=== PATIENT | female | born 1975 | race Caucasian/White ===

== ENCOUNTER 2021-10-28 10:02 | Inpatient (IN) | payer BC ==
--- NOTE | 2021-10-28 10:22 | ED ---
Abdominal Pain HPI - General Chief Complaint: Abdominal Pain Stated Complaint: Abd pain Time Seen by Provider: 10/28/21 10:07 Source: patient Mode of arrival: ambulatory Limitations: no limitations - History of Present Illness Initial Comments: Patient is a 46-year-old female presents to the emergency department with a chief complaint of abdominal pain. Patient was sent here from urgent care for labs and CT. Patient reports she coughed 2 days ago and experienced lower bandlike abdominal pain. There is radiation to the bilateral flanks. Patient reports that the intermittent pain has continued to worsen. She has associated fevers/chills. She denies other complaints at this time including upper respiratory symptoms, chest pain, nausea, vomiting, diarrhea, urination, increased urinary frequency/urgency, and blood in the urine. She denies pre vious abdominal surgery, chance of , and history of kidney infection or stone. - Related Data Home Medications Medication Instructions Recorded Confirmed Thyroid,Pork [[place] Thyroid] 90 mg PO HS 10/28/21 10/28/21 Allergies Allergy/AdvReac Type Severity Reaction Status Date / Time No Known Allergies Allergy Verified 10/28/21 11:00 Review of Systems ROS Statement: Those systems with pertinent positive or pertinent negative responses have been documented in the HPI. ROS Other: All systems not noted in ROS Statement are negative. Past Medical History Past Medical History: No Reported History History of Any Multi-Drug Resistant Organisms: None Reported Past Surgical History: No Surgical Hx Reported Past Psychological History: No Psychological Hx Reported Smoking Status: Never smoker Past Alcohol Use History: None Reported Past Drug Use History: None Reported General Exam Limitations: no limitations General appearance: alert, in no apparent distress Head exam: Present: atraumatic, normocephalic, normal inspection Eye exam: Present: normal appearance, PERRL, EOMI. Absent: scleral icterus, conjunctival injection, periorbital swelling Neck exam: Present: normal inspection Respiratory exam: Present: normal lung sounds bilaterally. Absent: respiratory distress, wheezes, rales, rhonchi, stridor Cardiovascular Exam: Present: regular rate, normal rhythm, normal heart sounds. Absent: systolic murmur, diastolic murmur, rubs, gallop, clicks GI/Abdominal exam: Present: soft, normal bowel sounds. Absent: distended, tenderness, guarding, rebound, rigid Back exam: Present: normal inspection. Absent: CVA tenderness (R), CVA tenderness (L) Neurological exam: Present: alert, oriented X3, CN II-XII intact Psychiatric exam: Present: normal affect, normal mood Skin exam: Present: warm, dry, intact, normal color. Absent: rash Course Vital Signs 10/28/21 10:04 Temperature 99.0 F Pulse Rate 86 Respiratory 18 Rate Blood Pressure 114/73 O2 Sat by Pulse 98 Oximetry Medical Decision Making - Medical Decision Making This is a 46-year-old female who presents to the emergency department with a chief complaint of lower abdominal pain. Thorough history and examination were performed. Patient is afebrile. CT of the abdomen and pelvis without contrast reveals severe acute diverticulitis involving the proximal portion of the sigmoid colon with suspected adhesions to the surrounding pelvic structures. No signs of perforation, definite abscess formation, or colonic obstruction possible progression to complication. Case discussed with Dr. Vazquez. Patient will be admitted to Dr. Vazquez with surgery consult for further evaluation and management of diverticulitis. Lactic, blood cultures, and Zosyn ordered. Results discussed with patient. Patient verbalizes understanding and is agreeable to plan. Dr. Ro is my attending. - Lab Data Result diagrams: 10/28/21 10:30 10/28/21 10:30 Lab Results 10/28/21 10/28/21 10/28/21 Range/Units 10:30 10:30 10:30 WBC 11.3 H (3.8-10.6) k/uL RBC 4.32 (3.80-5.40) m/uL Hgb 12.6 (11.4-16.0) gm/dL Hct 36.8 (34.0-46.0) % MCV 85.1 (80.0-100.0) fL MCH 29.2 (25.0-35.0) pg MCHC 34.3 (31.0-37.0) g/dL RDW 15.7 H (11.5-15.5) % Plt Count 292 (150-450) k/uL MPV 7.5 Neutrophils % 84 % Lymphocytes % 10 % Monocytes % 4 % Eosinophils % 0 % Basophils % 0 % Neutrophils # 9.5 H (1.3-7.7) k/uL Lymphocytes # 1.1 (1.0-4.8) k/uL Monocytes # 0.4 (0-1.0) k/uL Eosinophils # 0.1 (0-0.7) k/uL Basophils # 0.0 (0-0.2) k/uL Poikilocytosis Slight Sodium 135 L (137-145) mmol/L Potassium 3.6 (3.5-5.1) mmol/L Chloride 101 (98-107) mmol/L Carbon Dioxide 24 (22-30) mmol/L Anion Gap 10 mmol/L BUN 8 (7-17) mg/dL Creatinine 0.73 (0.52-1.04) mg/dL Est GFR (CKD-EPI)AfAm >90 (>60 ml/min/1.73 sqM) Est GFR (CKD-EPI)NonAf >90 (>60 ml/min/1.73 sqM) Glucose 137 H (74-99) mg/dL Calcium 9.1 (8.4-10.2) mg/dL Total Bilirubin 2.4 H (0.2-1.3) mg/dL AST 28 (14-36) U/L ALT 24 (4-34) U/L Alkaline Phosphatase 70 (38-126) U/L Total Protein 8.1 (6.3-8.2) g/dL Albumin 4.6 (3.5-5.0) g/dL Lipase 48 (23-300) U/L Urine Color Light Yellow Urine Appearance Cloudy H (Clear) Urine pH 6.0 (5.0-8.0) Ur Specific [place] 1.004 (1.001-1.035) Urine Protein Negative (Negative) Urine Glucose (UA) Negative (Negative) Urine Ketones Negative (Negative) Urine Blood Trace H (Negative) Urine Nitrite Negative (Negative) Urine Bilirubin Negative (Negative) Urine Urobilinogen <2.0 (<2.0) mg/dL Ur Leukocyte Esterase Trace H (Negative) Urine WBC <1 (0-5) /hpf Urine Bacteria Rare H (None) /hpf Urine HCG, Qual (Not Detectd) 10/28/21 Range/Units 10:30 WBC (3.8-10.6) k/uL RBC (3.80-5.40) m/uL Hgb (11.4-16.0) gm/dL Hct (34.0-46.0) % MCV (80.0-100.0) fL MCH (25.0-35.0) pg MCHC (31.0-37.0) g/dL RDW (11.5-15.5) % Plt Count (150-450) k/uL MPV Neutrophils % % Lymphocytes % % Monocytes % % Eosinophils % % Basophils % % Neutrophils # (1.3-7.7) k/uL Lymphocytes # (1.0-4.8) k/uL Monocytes # (0-1.0) k/uL Eosinophils # (0-0.7) k/uL Basophils # (0-0.2) k/uL Poikilocytosis Sodium (137-145) mmol/L Potassium (3.5-5.1) mmol/L Chloride (98-107) mmol/L Carbon Dioxide (22-30) mmol/L Anion Gap mmol/L BUN (7-17) mg/dL Creatinine (0.52-1.04) mg/dL Est GFR (CKD-EPI)AfAm (>60 ml/min/1.73 sqM) Est GFR (CKD-EPI)NonAf (>60 ml/min/1.73 sqM) Glucose (74-99) mg/dL Calcium (8.4-10.2) mg/dL Total Bilirubin (0.2-1.3) mg/dL AST (14-36) U/L ALT (4-34) U/L Alkaline Phosphatase (38-126) U/L Total Protein (6.3-8.2) g/dL Albumin (3.5-5.0) g/dL Lipase (23-300) U/L Urine Color Urine Appearance (Clear) Urine pH (5.0-8.0) Ur Specific [place] (1.001-1.035) Urine Protein (Negative) Urine Glucose (UA) (Negative) Urine Ketones (Negative) Urine Blood (Negative) Urine Nitrite (Negative) Urine Bilirubin (Negative) Urine Urobilinogen (<2.0) mg/dL Ur Leukocyte Esterase (Negative) Urine WBC (0-5) /hpf Urine Bacteria (None) /hpf Urine HCG, Qual Not Detected (Not Detectd) Disposition Clinical Impression: Abdominal pain, Diverticulitis Disposition: ADMITTED IP TO THIS [facility] Condition: Good Referrals: Nonstaff,Physician [Primary Care Provider] - 1-2 days Decision Time: 11:20
[2021-10-28 10:39] LABS: Basophils % (A) 0 %; Eosinophils # (A) 0.1 k/uL (0-0.7); Eosinophils % (A) 0 %; HCT 36.8 % (34.0-46.0); HGB 12.6 gm/dL (11.4-16.0); Lymphocytes # (A) 1.1 k/uL (1.0-4.8); Lymphocytes % (A) 10 %; MCH 29.2 pg (25.0-35.0); MCHC 34.3 g/dL (31.0-37.0); MCV 85.1 fL (80.0-100.0); Mean Platelet Volume 7.5; Monocytes # (A) 0.4 k/uL (0-1.0); Monocytes % (A) 4 %; Neutrophils # (A) 9.5 k/uL (1.3-7.7); Neutrophils % (A) 84 %; Platelet Count 292 k/uL (150-450); Poikilocytosis Slight; RBC 4.32 m/uL (3.80-5.40); RDW 15.7 % (11.5-15.5); WBC 11.3 k/uL (3.8-10.6)
[2021-10-28] MEDS ORDERED: SODIUM CHLORIDE 0.9% 1,000 ML IV STA (11:00)
[2021-10-28 11:01] LABS: Appearance,Urine Cloudy (Clear); Bacteria,Urine Rare /hpf; Bilirubin,Urine Negative (Negative); Blood,Urine Trace (Negative); Color,Urine Light Yellow; Glucose,Urine (UA) Negative (Negative); Ketones,Urine Negative (Negative); Leukocyte Esterase,Urine Trace (Negative); Nitrite,Urine Negative (Negative); Protein,Urine Negative (Negative); Specific Gravity,Urine 1.004 (1.001-1.035); Urobilinogen,Urine <2.0 mg/dL (<2.0); WBC,Urine <1 /hpf (0-5)
[2021-10-28 11:08] LABS: ALT 24 U/L (4-34); AST 28 U/L (14-36); African American GFR (CKD) >90 (>60 ml/min/1.73 sqM); Albumin 4.6 g/dL (3.5-5.0); Alkaline Phosphatase 70 U/L (38-126); Anion Gap 10 mmol/L; Blood Urea Nitrogen 8 mg/dL (7-17); Calcium 9.1 mg/dL (8.4-10.2); Carbon Dioxide 24 mmol/L (22-30); Chloride 101 mmol/L (98-107); Glucose 137 mg/dL (74-99); Lipase 48 U/L (23-300); Non-African American GFR(CKD) >90 (>60 ml/min/1.73 sqM); Potassium 3.6 mmol/L (3.5-5.1); Sodium 135 mmol/L (137-145); Total Bilirubin 2.4 mg/dL (0.2-1.3); Total Protein 8.1 g/dL (6.3-8.2)
--- NOTE | 2021-10-28 11:11 | CT ---
EXAMINATION TYPE: CT abdomen pelvis wo con DATE OF EXAM: 10/28/2021 COMPARISON: None available HISTORY: Pelvic pain. CT DLP: 719.7 mGycm Automated exposure control for dose reduction was used. TECHNIQUE: Helical acquisition of images was performed from the lung bases through the pelvis. No IV contrast administration. FINDINGS: LUNG BASES: No significant abnormality is appreciated. LIVER/GB: Questionable mild hepatic steatosis. No definite hepatic focal lesion by this nonenhanced C T scan. No radiodense gallbladder calculi. No signs of acute cholecystitis. PANCREAS: No significant abnormality is seen. SPLEEN: No significant abnormality is seen. ADRENALS: No significant abnormality is seen. KIDNEYS: No significant abnormality is seen. FREE AIR: No free air is visualized RETROPERITONEAL ADENOPATHY: No pathologically enlarged REPRODUCTIVE ORGANS: Suboptimally assessed suspected adhesion between the left side of the uterus and left adnexa as well as the inflamed sigmoid colon. URINARY BLADDER: Grossly unremarkable. PELVIC ADENOPATHY: No pathologically enlarged. OSSEOUS STRUCTURES: Osteophytosis of the left sacroiliac joint. Mild degenerative changes of the lum bar spine. BOWEL: Severe acute diverticulitis involving the proximal portion of the sigmoid colon with thickene d colonic wall, surrounding fat stranding, reactive fluid and peritoneal reflection thickening. No de finite abscess formation or signs of perforation by this nonenhanced CT scan. Suspected adhesions bet ween the inflamed sigmoid colon, the adjacent portion of the uterus, urinary bladder and left adnexa. This could progressed to fistula. The inflammatory changes are seen extending superiorly along the l eft side of the abdomen with fecalization of adjacent small bowel loop. Otherwise unremarkable nondis tended stomach, duodenum and small bowel. OTHER: No sizable ascites. Small fat-containing umbilical hernia IMPRESSION: Severe acute diverticulitis involving the proximal portion of the sigmoid colon with suspected adhesi ons to the surrounding pelvic structures as detailed above. No signs of perforation, definite abscess formation or colonic obstruction by this nonenhanced CT scan. This could progress to complication. O ther incidental findings as described above.
[2021-10-28] MEDS ORDERED: NALOXONE 0.4 MG/ML 1 ML VIAL IV PRN (12:15)
--- NOTE | 2021-10-28 12:16 | P.PN ---
Progress Note - Text Progress Note Date: 10/28/21 Spoke with ER regarding this patient with severe diverticulitis and adhesions, as well as elevated white count. Pts hospital stay likely > 2 midnights, therefore I called Dr. Vazquez, who will be admitting this patient as an inpatient admission under their service, and assuming care of patient at this time.
[2021-10-28] MEDS ORDERED: PIPERACILLIN-TAZOBACTAM 3.375 GM in SODIUM CHLORIDE 0.9% 100 ML IVPB STA (12:19)
--- NOTE | 2021-10-28 13:46 | P.HPIM ---
History of Present Illness Patient is a pleasant 46-year-old female came in with comments of abdominal pain in the left lower quadrant, moderate severity presently 3/10, intermittent denied nausea vomiting denied any fever chills. Patient has CT of the abdomen showed severe is acute diverticulitis with the suspected adhesions. No signs of perforation. Patient's symptoms started 2 days ago. Patient does have leukocytosis REVIEW OF SYSTEMS: CONSTITUTIONAL: No fever, no malaise, no fatigue. HEENT: No recent visual problems or hearing problems. Denied any sore throat. CARDIOVASCULAR: No chest pain, orthopnea, PND, no palpitations, no syncope. PULMONARY: No shortness of breath, no cough, no hemoptysis. GASTROINTESTINAL: As mentioned in HPI NEUROLOGICAL: No headaches, no weakness, no numbness. HEMATOLOGICAL: Denies any bleeding or petechiae. GENITOURINARY: Denies any burning micturition, frequency, or urgency. MUSCULOSKELETAL/RHEUMATOLOGICAL: Denies any joint pain, swelling, or any muscle pain. ENDOCRINE: Denies any polyuria or polydipsia. The rest of the 14-point review of systems is negative. PHYSICAL EXAMINATION: GENERAL: The patient is alert and oriented x3, not in any acute distress. Well developed, well nourished. HEENT: Pupils are round and equally reacting to light. EOMI. No scleral icterus. No conjunctival pallor. Normocephalic, atraumatic. No pharyngeal erythema. No thyromegaly. CARDIOVASCULAR: S1 and S2 present. No murmurs, rubs, or gallops. PULMONARY: Chest is clear to auscultation, no wheezing or crackles. ABDOMEN: Soft, mild tenderness and bilateral lower abdominal quadrants nondistended, normoactive bowel sounds. No palpable organomegaly. MUSCULOSKELETAL: No joint swelling or deformity. EXTREMITIES: No cyanosis, clubbing, or pedal edema. NEUROLOGICAL: Gross neurological examination did not reveal any focal deficits. SKIN: No rashes. Assessment and plan -Acute diverticulitis: Patient will be started on Rocephin and metronidazole. Patient was started on clear liquid diet and IV fluids -Hypothyroidism: Patient is not on any levothyroxine at this time we'll obtain TSH tomorrow DVT prophylaxis: Lovenox Past Medical History Past Medical History: Skin Disorder, Thyroid Disorder Additional Past Medical History / Comment(s): Recently failed stress test/to follow up in november 2021, hypothyroid, hemorrhoids, psoriasis, gestational diabetes. History of Any Multi-Drug Resistant Organisms: None Reported Past Surgical History: No Surgical Hx Reported Additional Past Surgical History / Comment(s): Incomplete colonoscopy/scoped descending colon Past Anesthesia/Blood Transfusion Reactions: No Reported Reaction Smoking Status: Never smoker - Past Family History Mother Additional Family Medical History / Comment(s): Mother has diverticulitis Father Family Medical History: Myocardial Infarction ([place]) Additional Family Medical History / Comment(s): Father had a MA at the age of 66 or 67yrs. Medications and Allergies Home Medications Medication Instructions Recorded Confirmed Type Thyroid,Pork [[place] Thyroid] 90 mg PO HS 10/28/21 10/28/21 History Allergies Allergy/AdvReac Type Severity Reaction Status Date / Time No Known Allergies Allergy Verified 10/28/21 11:00 Physical Exam Vitals: Vital Signs Temp Pulse Resp BP Pulse Ox 10/28/21 10:04 99.0 F 86 18 114/73 98 Intake and Output 10/27/21 10/28/21 10/28/21 22:59 06:59 14:59 Other: Weight 88.451 kg Results CBC & Chem 7: 10/28/21 10:30 10/28/21 10:30 Labs: Abnormal Lab Results - Last 24 Hours (Table) 10/28/21 10/28/21 10/28/21 Range/Units 10:30 10:30 10:30 WBC 11.3 H (3.8-10.6) k/uL RDW 15.7 H (11.5-15.5) % Neutrophils # 9.5 H (1.3-7.7) k/uL Sodium 135 L (137-145) mmol/L Glucose 137 H (74-99) mg/dL Total Bilirubin 2.4 H (0.2-1.3) mg/dL Urine Appearance Cloudy H (Clear) Urine Blood Trace H (Negative) Ur Leukocyte Esterase Trace H (Negative) Urine Bacteria Rare H (None) /hpf Thrombosis Risk Factor Assmnt - Choose All That Apply Any of the Below Risk Factors Present?: Yes Each Factor Represents 1 point: Age 41-60 years, Obesity (BMI >25) Other Risk Factors: No Other congenital or acquired thrombophilia - If yes, enter type in comment: No Thrombosis Risk Factor Assessment Total Risk Factor Score: 2 Thrombosis Risk Factor Assessment Level: Low Risk
[2021-10-28] MEDS ORDERED: KETOROLAC 30 MG/ML 1 ML VIAL IVP PRN (13:47)
[2021-10-28] MEDS ORDERED: HYDROcodone/APAP 7.5-325MG 1 EACH TAB PO PRN (13:49)
[2021-10-28] MEDS: ACETAMINOPHEN TAB 325 MG TAB PO PRN ×2 (14:41→21:41)
[2021-10-28] MEDS: FAMOTIDINE 20 MG TAB PO SCH ×2 (14:41→19:40)
[2021-10-28] MEDS: metroNIDAZOLE-NS PMX 500 MG in SALINE 1 100ML.BAG IVPB SCH ×2 (17:29→19:40)
[2021-10-28] MEDS: SODIUM CHLORIDE 0.9% 1,000 ML IV SCH (19:40)
[2021-10-29 02:05] VITALS: RESP 15; TEMP 97.6
[2021-10-29] MEDS: SODIUM CHLORIDE 0.9% 1,000 ML IV SCH ×2 (06:06→12:51)
[2021-10-29 08:18] LABS: Basophils % (A) 0 %; Eosinophils # (A) 0.1 k/uL (0-0.7); Eosinophils % (A) 1 %; HCT 33.7 % (34.0-46.0); HGB 11.2 gm/dL (11.4-16.0); Lymphocytes # (A) 1.2 k/uL (1.0-4.8); Lymphocytes % (A) 13 %; MCH 29.3 pg (25.0-35.0); MCHC 33.2 g/dL (31.0-37.0); MCV 88.2 fL (80.0-100.0); Mean Platelet Volume 7.9; Monocytes # (A) 0.3 k/uL (0-1.0); Monocytes % (A) 3 %; Neutrophils # (A) 7.5 k/uL (1.3-7.7); Neutrophils % (A) 81 %; Platelet Count 243 k/uL (150-450); RBC 3.82 m/uL (3.80-5.40); RDW 15.2 % (11.5-15.5); WBC 9.2 k/uL (3.8-10.6)
[2021-10-29 08:27] VITALS: BP 109/72; PULSE 80
[2021-10-29] MEDS: metroNIDAZOLE-NS PMX 500 MG in SALINE 1 100ML.BAG IVPB SCH (08:40)
[2021-10-29] MEDS: FAMOTIDINE 20 MG TAB PO SCH (08:40)
[2021-10-29] MEDS: ACETAMINOPHEN TAB 325 MG TAB PO PRN (08:43)
[2021-10-29] MEDS ORDERED: ENOXAPARIN 40 MG/0.4 ML SYRINGE SQ SCH (09:00)
[2021-10-29 09:27] LABS: African American GFR (CKD) >90 (>60 ml/min/1.73 sqM); Anion Gap 7 mmol/L; Blood Urea Nitrogen 5 mg/dL (7-17); Calcium 8.5 mg/dL (8.4-10.2); Carbon Dioxide 24 mmol/L (22-30); Chloride 106 mmol/L (98-107); Glucose 178 mg/dL (74-99); Non-African American GFR(CKD) >90 (>60 ml/min/1.73 sqM); Potassium 3.8 mmol/L (3.5-5.1); Sodium 137 mmol/L (137-145)
[2021-10-29 10:39] LABS: T4, Free (Free Thyroxine) 0.72 ng/dL (0.78-2.19)
[2021-10-29 10:46] VITALS: BMI 29.6
--- NOTE | 2021-10-29 11:15 | P.GSCN ---
History of Present Illness Consult date: 10/29/21 History of present illness: CHIEF COMPLAINT: Abdominal pain HISTORY OF PRESENT ILLNESS: This is a 46-year-old female presented to the hospital with complaints of abdominal pain in the left lower quadrant that started 2 days ago. Patient has had no prior history of diverticulitis. She denies any prior colonoscopy. Computed tomography scan has shown evidence of severe acute diverticulitis involving the sigmoid colon. Patient started on IV antibiotics. She reports that her pain is better today than compared to yesterday. Her white count has normalized. She denies any fever or chills or sweats. Patient seen and examined with Dr. murphy PAST MEDICAL HISTORY: Hypothyroidism, hemorrhoids PAST SURGICAL HISTORY: No surgical history MEDICATIONS: See list. ALLERGIES: See list. SOCIAL HISTORY: No illicit drug use. REVIEW OF SYSTEMS: CONSTITUTIONAL: Denies fever or chills. HEENT: Denies blurred vision, vision changes, or eye pain. Denies hemoptysis CARDIOVASCULAR: Denies chest pain or pressure. RESPIRATORY: No shortness of breath. GASTROINTESTINAL: See HPI for pertinent findings HEMATOLOGIC: Denies bleeding disorders. GENITOURINARY: Denies any blood in urine or increased urinary frequency. SKIN: Denies pruitis. Denies rash. PHYSICAL EXAM: VITAL SIGNS: Reviewed GENERAL: Well-developed in no acute distress. HEENT: No sclera icterus. Extraocular movements grossly intact. Moist buccal mucosa. Head is atraumatic, normocephalic. No nasal drainage. ABDOMEN: Soft. Nondistended. Tenderness to palpation of the left lower quadrant NEUROLOGIC: Alert and oriented. Cranial nerves II through XII grossly intact. LABORATORY DATA: WBC 11.3 down to 9.2 hemoglobin 11.2 platelets 243 Sodium 137 potassium 3.8 creatinine 0.64 IMAGING: Computed tomography scan abdomen and pelvis severe acute diverticulitis involving the proximal portion of the sigmoid colon with suspected adhesions to the surrounding pelvic structures. No signs of perforation, abscess formation or colonic obstruction. ASSESSMENT: 1. Acute sigmoid diverticulitis 2. Suspected adhesions surrounding the pelvic structures noted on computed tomography scan PLAN: -Continue conservative management -Continue antibiotics -Advance diet to full liquids -Continue to monitor -Continue pain medication as needed Thank you for this consultation Physician Manager Planning note has been reviewed by physician. Signing provider agrees with the documented findings, assessment, and plan of care. Past Medical History Past Medical History: Skin Disorder, Thyroid Disorder Additional Past Medical History / Comment(s): Recently failed stress test/to follow up in november 2021, hypothyroid, hemorrhoids, psoriasis, gestational diabetes. History of Any Multi-Drug Resistant Organisms: None Reported Past Surgical History: No Surgical Hx Reported Additional Past Surgical History / Comment(s): Incomplete colonoscopy/scoped descending colon Past Anesthesia/Blood Transfusion Reactions: No Reported Reaction Smoking Status: Never smoker - Past Family History Mother Additional Family Medical History / Comment(s): Mother has diverticulitis Father Family Medical History: Myocardial Infarction ([place]) Additional Family Medical History / Comment(s): Father had a [place] at the age of 66 or 67yrs. Medications and Allergies Home Medications Medication Instructions Recorded Confirmed Type Thyroid,Pork [[place] Thyroid] 90 mg PO HS 10/28/21 10/28/21 History Allergies Allergy/AdvReac Type Severity Reaction Status Date / Time No Known Allergies Allergy Verified 10/28/21 11:00 Surgical - Exam Vital Signs Temp Pulse Resp BP Pulse Ox 99.0 F 86 18 114/73 98 10/28/21 10:04 10/28/21 10:04 10/28/21 10:04 10/28/21 10:04 10/28/21 10:04 Results - Labs 10/29/21 07:58 10/29/21 07:58 Abnormal Lab Results - Last 24 Hours (Table) 10/28/21 10/28/21 10/28/21 Range/Units 10:30 10:30 10:30 WBC 11.3 H (3.8-10.6) k/uL Hgb (11.4-16.0) gm/dL Hct (34.0-46.0) % RDW 15.7 H (11.5-15.5) % Neutrophils # 9.5 H (1.3-7.7) k/uL Sodium 135 L (137-145) mmol/L BUN (7-17) mg/dL Glucose 137 H (74-99) mg/dL Total Bilirubin 2.4 H (0.2-1.3) mg/dL Urine Appearance Cloudy H (Clear) Urine Blood Trace H (Negative) Ur Leukocyte Esterase Trace H (Negative) Urine Bacteria Rare H (None) /hpf 10/29/21 10/29/21 Range/Units 07:58 07:58 WBC (3.8-10.6) k/uL Hgb 11.2 L (11.4-16.0) gm/dL Hct 33.7 L (34.0-46.0) % RDW (11.5-15.5) % Neutrophils # (1.3-7.7) k/uL Sodium (137-145) mmol/L BUN 5 L (7-17) mg/dL Glucose 178 H (74-99) mg/dL Total Bilirubin (0.2-1.3) mg/dL Urine Appearance (Clear) Urine Blood (Negative) Ur Leukocyte Esterase (Negative) Urine Bacteria (None) /hpf Diabetes panel 10/28/21 10/29/21 Range/Units 10:30 07:58 Sodium 135 L 137 (137-145) mmol/L Potassium 3.6 3.8 (3.5-5.1) mmol/L Chloride 101 106 (98-107) mmol/L Carbon Dioxide 24 24 (22-30) mmol/L BUN 8 5 L (7-17) mg/dL Creatinine 0.73 0.64 (0.52-1.04) mg/dL Glucose 137 H 178 H (74-99) mg/dL Calcium 9.1 8.5 (8.4-10.2) mg/dL AST 28 (14-36) U/L ALT 24 (4-34) U/L Alkaline Phosphatase 70 (38-126) U/L Total Protein 8.1 (6.3-8.2) g/dL Albumin 4.6 (3.5-5.0) g/dL Calcium panel 10/28/21 10/29/21 Range/Units 10:30 07:58 Calcium 9.1 8.5 (8.4-10.2) mg/dL Albumin 4.6 (3.5-5.0) g/dL Pituitary panel 10/28/21 10/29/21 Range/Units 10:30 07:58 Sodium 135 L 137 (137-145) mmol/L Potassium 3.6 3.8 (3.5-5.1) mmol/L Chloride 101 106 (98-107) mmol/L Carbon Dioxide 24 24 (22-30) mmol/L BUN 8 5 L (7-17) mg/dL Creatinine 0.73 0.64 (0.52-1.04) mg/dL Glucose 137 H 178 H (74-99) mg/dL Calcium 9.1 8.5 (8.4-10.2) mg/dL Adrenal panel 10/28/21 10/29/21 Range/Units 10:30 07:58 Sodium 135 L 137 (137-145) mmol/L Potassium 3.6 3.8 (3.5-5.1) mmol/L Chloride 101 106 (98-107) mmol/L Carbon Dioxide 24 24 (22-30) mmol/L BUN 8 5 L (7-17) mg/dL Creatinine 0.73 0.64 (0.52-1.04) mg/dL Glucose 137 H 178 H (74-99) mg/dL Calcium 9.1 8.5 (8.4-10.2) mg/dL Total Bilirubin 2.4 H (0.2-1.3) mg/dL AST 28 (14-36) U/L ALT 24 (4-34) U/L Alkaline Phosphatase 70 (38-126) U/L Total Protein 8.1 (6.3-8.2) g/dL Albumin 4.6 (3.5-5.0) g/dL
[2021-10-29] MEDS ORDERED: THYROID, PORK 30 MG TAB PO SCH ×2 (21:00)
--- NOTE | 2021-10-30 16:51 | P.DS ---
Providers Date of admission: 10/28/21 11:40 Attending physician: William Vazquez Consults: 10/28/21 12:15 Consult Physician Stat Consulting Provider: Inocencio Katz Reason/Comments: severe diverticulitis Do you want consulting provider notified?: Yes Primary care physician: Physician Nonstaff Hospital Course: Final Diagnosis Acute diverticulitis Leukocytosis secondary to above Hypothyroidism with TSH 14.00 T4 0.72 Psoriasis Full code Discharge disposition Patient stable for discharge medically cleared by general surgery on antibiotics and follow-up in the office. Hospital Course This is a pleasant 46 year female who presents to the hospital with complaints of abdominal pain left lower quadrant which moderate severity currently now rated a 3 out of 10. She denies any nausea vomiting fever or chills. Abdominal CT showed severe acute diverticulitis with suspected adhesions no signs of perforation, definite abscess formation or colonic obstruction. Patient is a mild elevated white count at 11.3, sodium 135. She was started on IV fluids, IV Flagyl, IV Rocephin and given Toradol for pain management. Blood cultures negative 2. She was also evaluated by general surgery, she tolerated clear liquid diet well and is asking to go home. Patient follows with Dr. Perkins in the office, has a past medical history significant for psoriasis, hypothyroidism, hemorrhoids, gestational diabetes, had a recent failed stress test in the cardiology office follows up in November 2021. Mother has a past medical history of diverticulitis. 10/29/2021 Patient evaluated today after monitor overnight. White count has resolved and is now 9.2, hemoglobin 11.2, electrical lites unremarkable, glucose elevated at 170, TSH 14.00, free T4 0.72. We did increase her thyroid [place] would recomm end a repeat TSH in the outpatient office. Additionally elevated random blood glucose 178 with recommended repeat in the office and an A1c. Patient is remained afebrile she is passing gas urinating without difficulty. No fever no chills overnight. Denies any chest pain, chest pressure cough or shortness of breath. She is asking for discharge home. After evaluation by gen surgery she is stable for discharge. Patient was discharged on oral Ceftin and oral Flagyl for 7 more days. Instructed to return to the EC or primary office with worsening symptoms. Patient to continue with small soft meals at home and increase diet as tolerated. Lungs are clear, S1-S2 auscultated, positive bowel sounds, mild left lower quadrant abdominal pain which is improved from yesterday. Focal neurological exam is negative. Please see medication reconciliation for list of current medications. Thank you for allowing us to participate in the care of this patient. Patient Condition at Discharge: Good Plan - Discharge Summary Discharge Rx Participant: Yes New Discharge Prescriptions: New Cefuroxime Axetil [Ceftin] 500 mg PO BID 7 Days #14 tab metroNIDAZOLE [Flagyl] 500 mg PO TID 7 Days #21 tab Thyroid, Pork [[place] Thyroid] 105 mg PO HS 30 Days #105 tab Famotidine [Pepcid] 20 mg PO BID tab Acetaminophen Tab [Tylenol] 650 mg PO Q6HR PRN tab PRN Reason: Fever Discontinued Thyroid,Pork [[place] Thyroid] 90 mg PO HS Discharge Medication List Acetaminophen Tab [Tylenol] 650 mg PO Q6HR PRN tab 10/29/21 [Rx] Cefuroxime Axetil [Ceftin] 500 mg PO BID 7 Days #14 tab 10/29/21 [Rx] Famotidine [Pepcid] 20 mg PO BID tab 10/29/21 [Rx] Thyroid, Pork [[place] Thyroid] 105 mg PO HS 30 Days #105 tab 10/29/21 [Rx] metroNIDAZOLE [Flagyl] 500 mg PO TID 7 Days #21 tab 10/29/21 [Rx] Follow up Appointment(s)/Referral(s): Dr Gregorio [Other] - 3 Days (Please call to make your appointment.) Inocencio Katz MD [STAFF PHYSICIAN] - 11/11/21 1:30 pm Ambulatory/Diagnostic Orders: Basic Metabolic Panel [LAB.AMB] Time Frame: 2 Days, Location: None Selected Patient Instructions/Handouts: Diverticulitis (DC), Diverticulitis Diet (DC) Activity/Diet/Wound Care/Special Instructions: Continue to follow soft diet with smaller meals Advance as tolerated Follow TSH outpatient and repeat Follow up with primary care Follow up with surgical Discharge Disposition: HOME SELF-CARE
== END 2021-10-29 14:58 | disposition home or self-care (01) | DRG 392 ==
LOC: EC 10:02 → 4SSUR 11:40
PROVIDERS: ADMIT Internal Medicine; ATTEND Internal Medicine
DX: K57.32 Diverticulitis of large intestine without perforation or abscess without bleeding (principal); L40.9 Psoriasis, unspecified; E03.9 Hypothyroidism, unspecified; Z82.49 Family history of ischemic heart disease and other diseases of the circulatory system; Z86.32 Personal history of gestational diabetes; K66.0 Peritoneal adhesions (postprocedural) (postinfection); Z79.890 Hormone replacement therapy
CPT/HCPCS: 36415; 74176; 80048; 80053; 81001; 81025; 83605; 83690; 84439; 84443; 85025; 87040; 96365; 96367; 99285

== ENCOUNTER 2023-04-04 14:54 | Emergency (ER) | payer BC ==
[2023-04-04 15:01] VITALS: TEMP 98.8
[2023-04-04] MEDS ORDERED: methocarbamoL 750 MG TAB PO STA (16:38)
[2023-04-04] MEDS ORDERED: KETOROLAC 15 MG/ML 1 ML VIAL IM STA (16:38)
--- NOTE | 2023-04-04 17:00 | ED ---
Back Pain HPI - General Chief Complaint: Back Pain/Injury Stated Complaint: Abd/Back Pain Time Seen by Provider: 04/04/23 15:38 Source: patient Limitations: no limitations - History of Present Illness Initial Comments: 48 year old Female presenting to the ED with chief complaint of back pain. Patient states this morning she started to feel lower left-sided back pain radiating down her head. States pain became so intense was unable to ambulate secondary to the pain. States pain is worsened by movement and notes pain becomes a 10/10 in severity when she tries to move. Denies any injury or recent trauma. Denies saddle anesthesia or incontinence. Denies urinary symptoms. Denies IVDA. No other complaints. - Related Data Home Medications Medication Instructions Recorded Confirmed Thyroid,Pork [[place] Thyroid] 90 mg PO DAILY 04/04/23 04/04/23 Previous Rx's Medication Instructions Recorded Amoxic-Pot Clav 875-125Mg 1 tab PO Q12HR 7 Days #14 tab 04/04/23 [Augmentin 875-125] Allergies Allergy/AdvReac Type Severity Reaction Status Date / Time No Known Allergies Allergy Verified 04/04/23 18:32 Review of Systems ROS Statement: Those systems with pertinent positive or pertinent negative responses have been documented in the HPI. ROS Other: All systems not noted in ROS Statement are negative. Past Medical History Past Medical History: Skin Disorder, Thyroid Disorder Additional Past Medical History / Comment(s): Recently failed stress test/to follow up in november 2021, hypothyroid, hemorrhoids, psoriasis, gestational d iabetes. History of Any Multi-Drug Resistant Organisms: None Reported Past Surgical History: No Surgical Hx Reported Additional Past Surgical History / Comment(s): Incomplete colonoscopy/scoped descending colon Past Anesthesia/Blood Transfusion Reactions: No Reported Reaction Past Psychological History: No Psychological Hx Reported Smoking Status: Never smoker - Past Family History Mother Additional Family Medical History / Comment(s): Mother has diverticulitis Father Family Medical History: Myocardial Infarction ([place]) Additional Family Medical History / Comment(s): Father had a [place] at the age of 66 or 67yrs. General Exam Limitations: no limitations General appearance: alert, in no apparent distress Neck exam: Present: other (No cervical spinal tenderness to palpation.) Respiratory exam: Present: normal lung sounds bilaterally Cardiovascular Exam: Present: regular rate, normal rhythm GI/Abdominal exam: Present: soft, other (No CVA tenderness to percussion bilat erally.) Rectal exam: Present: deferred Extremities exam: Present: other (Strength and Sensation in bilateral upper and lower extremities equal and intact.) Back exam: Present: normal inspection, other (No midline thoracic or lumbar spinal tenderness to palpation.) Neurological exam: Present: alert, oriented X3 Course Vital Signs 04/04/23 04/04/23 14:59 18:56 Temperature 98.8 F 98.8 F Pulse Rate 80 88 Respiratory 18 17 Rate Blood Pressure 158/77 137/78 O2 Sat by Pulse 100 98 Oximetry Medical Decision Making - Medical Decision Making Was pt. sent in by a medical professional or institution (, PA, [employer], urgent care, hospital, or long-term...) When possible be specific @ -No Did you speak to anyone other than the patient for history (EMS, parent, family, police, friend...)? What history was obtained from this source @ -No Did you review nursing and triage notes (agree or disagree)? Why? @ -I reviewed and agree with nursing and triage notes Were old charts reviewed (outside hosp., previous admission, EMS record, old EKG, old radiological studies, urgent care reports/EKG's, long-term records)? Report findings @ -No old charts were reviewed Differential Diagnosis (chest pain, altered mental status, abdominal pain women, abdominal pain men, vaginal bleeding, weakness, fever, dyspnea, syncope, hea dache, dizziness, GI bleed, back pain, seizure, CVA, palpatations, mental health, musculoskeletal)? @ -Differential Back Pain: Strain, zoster, cauda equina syndrome, epidural abscess, vertebral osteomyelitis, discitis, fracture, subluxation, disc herniation, DJD, spinal stenosis, dissection, AAA, pancreatitis, peptic ulcer disease, pyelonephritis, kidney stone, this is not meant to be an all-inclusive list. Differential Abdominal Pain Women: Appendicitis, Cholecystitis, diverticulosis, ischemic bowel, pancreatitis, hepatitis, UTI, gastroenteritis, AAA, incarcerated hernia, bowel obstruction, constipation, inflammatory bowel, hepatitis, peptic ulcer disease, splenic infar ction, perforated viscus, vulvitis, ovarian torsion, PID, kidney stone, placenta abruption, this is not meant to be an all-inclusive list EKG interpreted by me (3pts min.). @ -None X-rays interpreted by me (1pt min.). @ -Lumbar x-ray shows no acute process. CT interpreted by me (1pt min.). @ -CT abdomen/pelvis showed possible inflammatory changes suggestive of diverticulitis. U/S interpreted by me (1pt. min.). @ -None done What testing was considered but not performed or refused? (CT, X-rays, U/S, labs)? Why? @ -None What meds were considered but not given or refused? Why? @ -None Did you discuss the management of the patient with other professionals (professionals i.e. DrYeni, PA, [employer], lab, RT, psych nurse, social science instructor, video intern, teacher, community liaison officer, rn case management)? Give summary @ -No Was smoking cessation discussed for >3mins.? @ -No Was critical care preformed (if so, how long)? @ -No Were there social determinants of health that impacted care today? How? (Homelessness, low income, unemployed, alcoholism, drug addiction, t ransportation, low edu. Level, literacy, decrease access to med. care, senior living, rehab)? @ -No Was there de-escalation of care discussed even if they declined (Discuss DNR or withdrawal of care, Hospice)? DNR status @ -No What co-morbidities impacted this encounter? (DM, HTN, Smoking, COPD, CAD, Cancer, CVA, ARF, Chemo, Hep., AIDS, mental health diagnosis, sleep apnea, morbid obesity)? @ -None Was patient admitted / discharged? Hospital course, mention meds given and route, prescriptions, significant lab abnormalities, going to OR and other pertinent info. @ -Discharge. Lumbar x-rays showed degenerative changes however no acute findings. CT abdomen/pelvis showed some inflammatory changes may be consistent with diverticulitis. Laboratory studies here are unremarkable. Symptoms likely musculoskeletal in nature. Discharged home in stable condition. Provided prescription for Augmentin. Advised follow-up with PCP. Discussed return precautions with patient who verbalized agreement. Undiagnosed new problem with uncertain prognosis? @ -No Drug Therapy requiring intensive monitoring for toxicity (Heparin, Nitro, Insulin, Cardizem)? @ -No Were any procedures done? @ -No Diagnosis/symptom? @ -Back pain Acute, or Chronic, or Acute on Chronic? @ -Acute Uncomplicated (without systemic symptoms) or Complicated (systemic symptoms)? @ -Uncomplicated Side effects of treatment? @ -No Exacerbation, Progression, or Severe Exacerbation? @ -No Poses a threat to life or bodily function? How? (Chest pain, [place], [place], pneumonia, PE, COPD, DKA, ARF, appy, cholecystitis, CVA, Diverticulitis, Homicidal, Suicidal, threat to staff... and all critical care pts) @ -No - Lab Data Result diagrams: 04/04/23 17:59 04/04/23 17:59 Lab Results 04/04/23 04/04/23 04/04/23 Range/Units 17:00 17:59 17:59 WBC 8.1 (3.8-10.6) k/uL RBC 4.01 (3.80-5.40) m/uL Hgb 12.1 (11.4-16.0) gm/dL Hct 34.1 (34.0-46.0) % MCV 85.1 (80.0-100.0) fL MCH 30.2 (25.0-35.0) pg MCHC 35.5 (31.0-37.0) g/dL RDW 14.7 (11.5-15.5) % Plt Count 255 (150-450) k/uL MPV 7.8 Neutrophils % 74 % Lymphocytes % 21 % Monocytes % 3 % Eosinophils % 1 % Basophils % 0 % Neutrophils # 6.0 (1.3-7.7) k/uL Lymphocytes # 1.7 (1.0-4.8) k/uL Monocytes # 0.2 (0-1.0) k/uL Eosinophils # 0.1 (0-0.7) k/uL Basophils # 0.0 (0-0.2) k/uL Sodium 135 L (137-145) mmol/L Potassium 3.9 (3.5-5.1) mmol/L Chloride 103 (98-107) mmol/L Carbon Dioxide 20 L (22-30) mmol/L Anion Gap 12 mmol/L BUN 10 (7-17) mg/dL Creatinine 0.67 (0.52-1.04) mg/dL Est GFR (CKD-EPI)AfAm >90 (>60 ml/min/1.73 sqM) Est GFR (CKD-EPI)NonAf >90 (>60 ml/min/1.73 sqM) Glucose 113 H (74-99) mg/dL Calcium 9.2 (8.4-10.2) mg/dL Total Bilirubin 0.9 (0.2-1.3) mg/dL AST 26 (14-36) U/L ALT 27 (4-34) U/L Alkaline Phosphatase 65 (38-126) U/L Total Protein 7.6 (6.3-8.2) g/dL Albumin 4.5 (3.5-5.0) g/dL Urine Color Yellow Urine Appearance Clear (Clear) Urine pH 6.5 (5.0-8.0) Ur Specific [place] 1.012 (1.001-1.035) Urine Protein Negative (Negative) Urine Glucose (UA) Negative (Negative) Urine Ketones Negative (Negative) Urine Blood Negative (Negative) Urine Nitrite Negative (Negative) Urine Bilirubin Negative (Negative) Urine Urobilinogen <2.0 (<2.0) mg/dL Ur Leukocyte Esterase Negative (Negative) Urine HCG, Qual (Not Detectd) 04/04/23 Range/Units 19:21 WBC (3.8-10.6) k/uL RBC (3.80-5.40) m/uL Hgb (11.4-16.0) gm/dL Hct (34.0-46.0) % MCV (80.0-100.0) fL MCH (25.0-35.0) pg MCHC (31.0-37.0) g/dL RDW (11.5-15.5) % Plt Count (150-450) k/uL MPV Neutrophils % % Lymphocytes % % Monocytes % % Eosinophils % % Basophils % % Neutrophils # (1.3-7.7) k/uL Lymphocytes # (1.0-4.8) k/uL Monocytes # (0-1.0) k/uL Eosinophils # (0-0.7) k/uL Basophils # (0-0.2) k/uL Sodium (137-145) mmol/L Potassium (3.5-5.1) mmol/L Chloride (98-107) mmol/L Carbon Dioxide (22-30) mmol/L Anion Gap mmol/L BUN (7-17) mg/dL Creatinine (0.52-1.04) mg/dL Est GFR (CKD-EPI)AfAm (>60 ml/min/1.73 sqM) Est GFR (CKD-EPI)NonAf (>60 ml/min/1.73 sqM) Glucose (74-99) mg/dL Calcium (8.4-10.2) mg/dL Total Bilirubin (0.2-1.3) mg/dL AST (14-36) U/L ALT (4-34) U/L Alkaline Phosphatase (38-126) U/L Total Protein (6.3-8.2) g/dL Albumin (3.5-5.0) g/dL Urine Color Urine Appearance (Clear) Urine pH (5.0-8.0) Ur Specific [place] (1.001-1.035) Urine Protein (Negative) Urine Glucose (UA) (Negative) Urine Ketones (Negative) Urine Blood (Negative) Urine Nitrite (Negative) Urine Bilirubin (Negative) Urine Urobilinogen (<2.0) mg/dL Ur Leukocyte Esterase (Negative) Urine HCG, Qual Not Detected (Not Detectd) Disposition Clinical Impression: Back pain, Diverticulitis Disposition: HOME SELF-CARE Condition: Good Instructions (If sedation given, give patient instructions): Acute Low Back Pain (ED) Additional Instructions: Please return to the Emergency Department if symptoms worsen or any other justen rns. Prescriptions: Amoxic-Pot Clav 875-125Mg [Augmentin 875-125] 1 tab PO Q12HR 7 Days #14 tab Is patient prescribed a controlled substance at d/c from ED?: No Referrals: Nonstaff,Physician [Primary Care Provider] - 1-2 days Time of Disposition: 20:04
--- NOTE | 2023-04-04 17:02 | XR ---
EXAMINATION TYPE: XR lumbar spine 2 or 3V DATE OF EXAM: 04/04/2023 4:49 PM INDICATION: Patient age:Female; 48 years old; Reason for study: back pain; PHH. COMPARISON: 10/28/2021 TECHNIQUE: Frontal, lateral and coned in L5-S1 lateral views of the spine. FINDINGS: No evidence of any acute osseous pathology. No evidence of loss of vertebral body height i s seen. There is normal alignment of the lumbar vertebral bodies. Mild scattered disc space narrowing . Multilevel marginal osteophyte formation throughout the visualized spine. There is facet joint arth ropathy throughout the spine. Scattered at least mild neural foraminal stenosis. Neural foraminal jason nosis worse at L5-S1. IMPRESSION: 1. No acute fracture. 2. Mild to moderate multilevel disc degeneration.
[2023-04-04 17:11] LABS: Appearance,Urine Clear (Clear); Bilirubin,Urine Negative (Negative); Blood,Urine Negative (Negative); Color,Urine Yellow; Glucose,Urine (UA) Negative (Negative); Ketones,Urine Negative (Negative); Leukocyte Esterase,Urine Negative (Negative); Nitrite,Urine Negative (Negative); PH, Urine 6.5 (5.0-8.0); Protein,Urine Negative (Negative); Specific Gravity,Urine 1.012 (1.001-1.035); Urobilinogen,Urine <2.0 mg/dL (<2.0)
[2023-04-04] MEDS ORDERED: MORPHINE SULFATE 4 MG/ML SYRINGE IVP STA (17:43)
[2023-04-04 18:16] LABS: Basophils % (A) 0 %; Eosinophils # (A) 0.1 k/uL (0-0.7); Eosinophils % (A) 1 %; HCT 34.1 % (34.0-46.0); HGB 12.1 gm/dL (11.4-16.0); Lymphocytes # (A) 1.7 k/uL (1.0-4.8); Lymphocytes % (A) 21 %; MCH 30.2 pg (25.0-35.0); MCHC 35.5 g/dL (31.0-37.0); MCV 85.1 fL (80.0-100.0); Mean Platelet Volume 7.8; Monocytes # (A) 0.2 k/uL (0-1.0); Monocytes % (A) 3 %; Neutrophils % (A) 74 %; Platelet Count 255 k/uL (150-450); RBC 4.01 m/uL (3.80-5.40); RDW 14.7 % (11.5-15.5); WBC 8.1 k/uL (3.8-10.6)
[2023-04-04 18:50] LABS: ALT 27 U/L (4-34); AST 26 U/L (14-36); African American GFR (CKD) >90 (>60 ml/min/1.73 sqM); Albumin 4.5 g/dL (3.5-5.0); Alkaline Phosphatase 65 U/L (38-126); Anion Gap 12 mmol/L; Blood Urea Nitrogen 10 mg/dL (7-17); Calcium 9.2 mg/dL (8.4-10.2); Carbon Dioxide 20 mmol/L (22-30); Chloride 103 mmol/L (98-107); Glucose 113 mg/dL (74-99); Non-African American GFR(CKD) >90 (>60 ml/min/1.73 sqM); Potassium 3.9 mmol/L (3.5-5.1); Sodium 135 mmol/L (137-145); Total Bilirubin 0.9 mg/dL (0.2-1.3); Total Protein 7.6 g/dL (6.3-8.2)
[2023-04-04 19:01] VITALS: BP 137/78; PULSE 88; RESP 17
--- NOTE | 2023-04-04 19:56 | CT ---
EXAMINATION TYPE: CT abdomen pelvis wo con CT DLP: 780.3 mGycm, Automated exposure control for dose reduction was used. DATE OF EXAM: 04/04/2023 7:39 PM COMPARISON: CT abdomen pelvis most recent from 10/28/2021 CLINICAL INDICATION:Female, 48 years old with history of abd/back pain; LLQ AND FLANK PAIN TECHNIQUE: Axial CT of the abdomen and pelvis. Sagittal and coronal reformats were created on a Status[employer] workstation. Contrast used: mL of , (none if empty) Oral contrast used: without Oral Contrast (none if empty) FINDINGS: LOWER CHEST: Unremarkable ABDOMEN LIVER: Unremarkable GALLBLADDER AND BILE DUCTS: Noncalcified gallstones throughout the gallbladder. PANCREAS: Unremarkable. SPLEEN: Unremarkable. ADRENAL GLANDS: Unremarkable. KIDNEYS AND URETERS: No evidence of hydronephrosis or renal calculus. The ureters are unremarkable. PELVIS BLADDER: Unremarkable REPRODUCTIVE: Unremarkable. ABDOMEN & PELVIS STOMACH AND BOWEL: No evidence of bowel obstruction. The appendix is normal. Scattered colonic divert icula with some mild fat stranding changes around the sigmoid colon suggested series 203 image 98. PERITONEUM/RETROPERITONEUM: No evidence of pneumoperitoneum or free fluid. VASCULATURE: No evidence of aortic aneurysm. MUSCULOSKELETAL: No acute osseous abnormalities. Mild disc degeneration changes are present throughou t the thoracolumbar spine. LYMPH NODES: No gross evidence for lymphadenopathy. SOFT TISSUE/ABDOMINAL WALL: Fat-containing umbilical hernia. IMPRESSION: 1. There may be mild inflammation changes suggesting diverticulitis around the sigmoid colon with an area of colonic diverticula otherwise No evidence for acute abdominal process. No evidence for obstr uctive uropathy or urolithiasis. The appendix is normal.
== END 2023-04-04 20:30 | disposition home or self-care (01) ==
LOC: EC 14:54
DX: K57.92 Diverticulitis of intestine, part unspecified, without perforation or abscess without bleeding (principal); M54.50 Low back pain, unspecified; E07.9 Disorder of thyroid, unspecified; Z79.890 Hormone replacement therapy
CPT/HCPCS: 36415; 80053; 85025; 81003; 81025; 72100; 74176; 99284; 96372; 96374; J2270; J1885